=== PATIENT | female | born 1990 ===

== ENCOUNTER 2018-04-23 06:53 | Day surgery (SDC) | payer OTHER ==
[~2018-04-23 06:53] MED LIST: ATENOLOL25 MG PO
== END 2018-04-23 15:35 | disposition home or self-care (01) ==
LOC: CIR.AMB 06:53
DX: N84.0 Polyp of corpus uteri (principal)

== ENCOUNTER 2019-04-30 20:20 | Emergency (ER) | payer OTHER ==
[~2019-04-30] VITALS: Ht 170.2 cm; Wt 83.9 kg
== END 2019-04-30 23:31 | disposition home or self-care (01) ==
LOC: ER 20:20
DX: O26.851 Spotting complicating pregnancy, first trimester (principal); Z34.01 Encounter for supervision of normal first pregnancy, first trimester

== ENCOUNTER 2019-07-08 00:53 | Emergency (ER) | payer OTHER ==
[~2019-07-08] VITALS: Ht 172.7 cm; Wt 107.5 kg
[2019-07-08] MEDS ORDERED: PRENATAL + DHA1 EAC1 (01:04)
[2019-07-08] MEDS ORDERED: XOPENEX0.63 MG/3 IH (03:29)
== END 2019-07-08 03:34 ==
LOC: ER 00:53
DX: R06.02 Shortness of breath (principal); R07.0 Pain in throat; R90.81 Abnormal echoencephalogram

== ENCOUNTER 2019-09-11 16:18 | Outpatient (CLI) | payer OTHER ==
[~2019-09-11 16:18] MED LIST changes: +PRENATAL + DHA1 EAC1; +XOPENEX0.63 MG/3 IH
== END 2019-09-11 18:57 | disposition home or self-care (01) ==
LOC: NST 16:18
DX: Z34.82 Encounter for supervision of other normal pregnancy, second trimester (principal)

== ENCOUNTER 2019-12-21 12:18 | Outpatient (CLI) | payer OTHER | END 2019-12-21 13:28 | disposition home or self-care (01) | LOC: NST 12:18 | DX: Z34.83 Encounter for supervision of other normal pregnancy, third trimester (principal) ==